=== PATIENT | male | born 1945 | race Caucasian/White ===

== ENCOUNTER → 2016-10-02 | Outpatient (CLI) | payer BC, OTHER | LOC: CV 12:45 | DX: I51.7 Cardiomegaly (principal); I25.10 Atherosclerotic heart disease of native coronary artery without angina pectoris ==

== ENCOUNTER → 2018-03-28 | Outpatient (CLI) | payer BC, OTHER ==
[~2018-03-28] MED LIST: ACYCLOVIR 200200 MG PO; AURALGAN EAR DR14 ML OT; IMDUR 30 MG TAB30 M1 PO; K-DUR 20 MEQ T20 MEQ PO; KEFLEX250 MG PO; LASIX 20 MG TAB20 MG PO; LIPITOR80 MG PO; LISINOPRIL10 MG PO; RABEPRAZOLE SOD20 MG PO; SERTRALINE HCL100 MG PO; SINEMET 25-2501 EAC1 PO
--- NOTE | 2018-03-28 16:25 | 2DMMODE ---
[facility] [place] [address] 2 D/M-MODE ECHOCARDIOGRAM Name: ZACHJONATHAN MURRAY Room #: REG [facility]#: [id number] ������������� Admission: 03/28/18 ������������� Attend Phys: Abebe Corral MD Discharge: ��� ������������� ��� Date of : 49 Date of Service: 03/28/18 1625 �� Report #: [id number] �������� ��������������������������������������������[id number] THIS REPORT FOR: //name// APPROVED REPORT Study performed: 03/28/2018 14:37:33 EXAM: Comprehensive 2D, Doppler, and color-flow Echocardiogram Patient Location: Echo lab Status: routine BSA: 2.49 HR: 55 bpm BP: 140/80 mmHg Rhythm: NSR Other Information Study Quality: Fair Indications Bradycardia CAD HTN 2D Dimensions IVSd: 14.28 (7-11mm) LVOT Diam: 25.38 (18-24mm) LVDd: 54.07 mm PWd: 12.28 (7-11mm) Ascending Ao: 44.73 (22-36mm) LVDs: 43.26 (25-40mm) Aortic Root: 46.95 mm Volumes Left Atrial Volume (Systole) Single Plane 4CH: 34.81 mL Single Plane 2CH: 50.69 mL LA ESV Index: 18.42 mL/m2 Aortic Valve AoV Peak Sunny.: 0.89 m/s AO Peak Gr.: 3.20 mmHg LVOT Max P.37 mmHg LVOT Max V: 0.58 m/s KENNEDI Vmax: 3.31 cm2 Mitral Valve E/A Ratio: 0.7 MV Decel. Time: 261.78 ms [facility] [address] [address] 2 D/M-MODE ECHOCARDIOGRAM Name: BILLIE SERRANODRICK MURRAY Room #: REG [facility]#: [id number] ������������� Admission: 03/28/18 ������������� Attend Phys: Abebe Corral MD Discharge: ��� ������������� ��� Date of : 49 Date of Service: 03/28/18 1625 �� Report #: [id number] �������� ��������������������������������������������[id number] MV E Max Sunny.: 0.38 m/s MV A Sunny.: 0.56 m/s MV PHT: 75.91 ms IVRT: 106.11 ms Pulmonary Valve PV Peak Sunny.: 0.90 m/s PV Peak Gr.: 3.26 mmHg ID End Vmax: 0.87 m/s Tricuspid Valve TR Peak Sunny.: 2.24 m/s RAP Estimate: 5.00 mmHg TR Peak Gr.: 20.11 mmHg PA Pressure: 25.00 mmHg Left Ventricle The left ventricle is normal size. Mild concentric left ventricular hypertrophy. Left ventricular systolic function is mildly decreased. LVEF is 45%. Mild diastolic dysfunction is present (impaired relaxation pattern). Right Ventricle The right ventricle is normal size. The right ventricular systolic function is normal. Atria The left atrium size is normal. The right atrium size is normal. Aortic Valve The aortic valve is normal in structure. No aortic regurgitation is present. There is no aortic valvular stenosis. Mitral Valve The mitral valve is normal in structure. Trace mitral regurgitation. No evidence of mitral valve stenosis. Tricuspid Valve The tricuspid valve is normal in structure. Mild tricuspid regurgitation. Estimated PAP of 25 mmHg. Pulmonic Valve The pulmonary valve is normal in structure. Mild to moderate pulmonic regurgitation. 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 Ascending aorta is dilated [facility] [place] [place] [address] 2 D/M-MODE ECHOCARDIOGRAM Name: ZACHJONATHANCISCO GAO Room #: REG [facility]#: [id number] ������������� Admission: 03/28/18 ������������� Attend Phys: Abebe Corral MD Discharge: ��� ������������� ��� Date of : 49 Date of Service: 03/28/18 1625 �� Report #: [id number] �������� ��������������������������������������������[id number] measuring 4.5 cm. IVC is normal in size and collapses >50% with inspiration. Pericardium There is no pericardial effusion. <Conclusion> The left ventricle is normal size. Mild concentric left ventricular hypertrophy. Left ventricular systolic function is mildly decreased. LVEF is 45%. Mild diastolic dysfunction is present (impaired relaxation pattern). The right ventricle is normal size. The left atrium size is normal. There is no aortic valvular stenosis. Trace mitral regurgitation. Mild tricuspid regurgitation. Estimated PAP of 25 mmHg. ��������������������������������������������� <ELECTRONICALLY SIGNED> ���������������������������������������� By: Abebe Corral MD ��������������������������������������������� 03/28/18 1625 1625 1625 Abebe Corral MD /INF
== END | disposition home or self-care (01) ==
LOC: OPONC 12:32
DX: I08.1 Rheumatic disorders of both mitral and tricuspid valves (principal); I11.0 Hypertensive heart disease with heart failure; I50.30 Unspecified diastolic (congestive) heart failure; I25.10 Atherosclerotic heart disease of native coronary artery without angina pectoris; Z79.899 Other long term (current) drug therapy

== ENCOUNTER → 2019-03-26 | Outpatient (CLI) | payer BC | LOC: SJCVCIMAG 10:02 → NUC 14:07 → SJCVCIMAG 14:35 → NUC 14:41 | DX: I44.0 Atrioventricular block, first degree (principal); I25.10 Atherosclerotic heart disease of native coronary artery without angina pectoris; I10 Essential (primary) hypertension; E78.5 Hyperlipidemia, unspecified; E11.9 Type 2 diabetes mellitus without complications; Z79.4 Long term (current) use of insulin; Z87.891 Personal history of nicotine dependence ==

== ENCOUNTER → 2019-09-25 | Outpatient (CLI) | payer BC, OTHER | LOC: SJCVC 12:53 | PROVIDERS: ATTEND Internal Medicine Cardiovascular Disease | DX: R94.31 Abnormal electrocardiogram [ECG] [EKG] (principal); I44.0 Atrioventricular block, first degree; I44.4 Left anterior fascicular block; I25.10 Atherosclerotic heart disease of native coronary artery without angina pectoris; I10 Essential (primary) hypertension; E78.00 Pure hypercholesterolemia, unspecified; R60.9 Edema, unspecified ==

== ENCOUNTER → 2020-04-01 | Outpatient (CLI) | payer BC, OTHER | LOC: SJCVC 12:38 | PROVIDERS: ATTEND Internal Medicine Cardiovascular Disease | DX: R94.31 Abnormal electrocardiogram [ECG] [EKG] (principal); I45.10 Unspecified right bundle-branch block; I44.0 Atrioventricular block, first degree; I25.10 Atherosclerotic heart disease of native coronary artery without angina pectoris; I10 Essential (primary) hypertension; E78.00 Pure hypercholesterolemia, unspecified; R60.9 Edema, unspecified; G47.33 Obstructive sleep apnea (adult) (pediatric); Z79.82 Long term (current) use of aspirin; Z79.4 Long term (current) use of insulin; Z79.899 Other long term (current) drug therapy ==

== ENCOUNTER → 2020-09-22 | Outpatient (CLI) | payer OTHER | LOC: SJCVC 13:37 | PROVIDERS: ATTEND Internal Medicine Cardiovascular Disease | DX: R94.31 Abnormal electrocardiogram [ECG] [EKG] (principal); I45.10 Unspecified right bundle-branch block; I44.0 Atrioventricular block, first degree; I10 Essential (primary) hypertension; I25.10 Atherosclerotic heart disease of native coronary artery without angina pectoris; E78.00 Pure hypercholesterolemia, unspecified; R60.9 Edema, unspecified; Z90.49 Acquired absence of other specified parts of digestive tract; Z79.82 Long term (current) use of aspirin; Z79.4 Long term (current) use of insulin; Z79.899 Other long term (current) drug therapy; Z87.891 Personal history of nicotine dependence; Z82.49 Family history of ischemic heart disease and other diseases of the circulatory system ==

== ENCOUNTER → 2020-10-06 | Outpatient (CLI) | payer OTHER | LOC: SJCVCIMAG 07:54 | PROVIDERS: ATTEND Internal Medicine Cardiovascular Disease | DX: R94.31 Abnormal electrocardiogram [ECG] [EKG] (principal); I44.0 Atrioventricular block, first degree; I25.10 Atherosclerotic heart disease of native coronary artery without angina pectoris; I10 Essential (primary) hypertension; E78.00 Pure hypercholesterolemia, unspecified; R60.9 Edema, unspecified; E11.9 Type 2 diabetes mellitus without complications; I11.9 Hypertensive heart disease without heart failure; Z79.82 Long term (current) use of aspirin; Z79.4 Long term (current) use of insulin; Z79.899 Other long term (current) drug therapy; Z87.891 Personal history of nicotine dependence; Z72.89 Other problems related to lifestyle ==

== ENCOUNTER → 2020-11-22 | Outpatient (CLI) | payer OTHER | LOC: SJCVC 13:00 | PROVIDERS: ATTEND Internal Medicine Cardiovascular Disease | DX: I45.2 Bifascicular block (principal); R94.31 Abnormal electrocardiogram [ECG] [EKG]; I48.91 Unspecified atrial fibrillation; I25.10 Atherosclerotic heart disease of native coronary artery without angina pectoris; I10 Essential (primary) hypertension; E78.00 Pure hypercholesterolemia, unspecified; R60.9 Edema, unspecified; E11.9 Type 2 diabetes mellitus without complications; G47.33 Obstructive sleep apnea (adult) (pediatric); Z79.82 Long term (current) use of aspirin; Z79.4 Long term (current) use of insulin; Z79.899 Other long term (current) drug therapy; Z87.891 Personal history of nicotine dependence; Z72.89 Other problems related to lifestyle ==

== ENCOUNTER → 2020-12-09 | Outpatient (CLI) | payer OTHER ==
[~2020-12-09] MED LIST changes: +ACTOS 30 MG TAB30 MG PO; +CARVEDILOL12.5 MG PO; +ELIQUIS5 MG PO; +GLIPIZIDE 10 MG10 MG PO; +METFORMIN HCL500 M3 PO; +MULTAQ 400 MG400 MG PO; +NOVOLOG MI100 UNIT/M SUBQ
== END ==
LOC: SJCVC 14:37
PROVIDERS: ATTEND Internal Medicine Cardiovascular Disease
DX: R94.31 Abnormal electrocardiogram [ECG] [EKG] (principal); I44.30 Unspecified atrioventricular block; I48.92 Unspecified atrial flutter; I48.0 Paroxysmal atrial fibrillation; I25.10 Atherosclerotic heart disease of native coronary artery without angina pectoris; I10 Essential (primary) hypertension; G47.33 Obstructive sleep apnea (adult) (pediatric); E66.01 Morbid (severe) obesity due to excess calories; R60.9 Edema, unspecified; E11.9 Type 2 diabetes mellitus without complications; I48.3 Typical atrial flutter; Z87.891 Personal history of nicotine dependence; Z72.89 Other problems related to lifestyle; Z79.4 Long term (current) use of insulin; Z79.82 Long term (current) use of aspirin; Z79.899 Other long term (current) drug therapy; Z82.49 Family history of ischemic heart disease and other diseases of the circulatory system

== ENCOUNTER → 2020-12-21 | Outpatient (CLI) | payer OTHER ==
[~2020-12-21] VITALS: Ht 190.5 cm; Wt 152.0 kg
[2020-12-21 07:39] VITALS: BP 132/45
[2020-12-21 07:39] LABS: ABSOLUTE NEUTROPHILS 5.1 thou/uL (1.4-8.2); BASOPHILS 0.9 % (0.0-2.0); EOSINOPHILS 3.3 % (0.0-3.0); HEMATOCRIT 38.5 % (42.0-52.0); HEMOGLOBIN 12.8 gm/dL (14.0-18.0); LYMPHOCYTES 20.1 % (24.0-44.0); MCHC 33.2 g/dL (28.0-37.0); MCV 87.3 fL (80.0-100.0); MONOCYTES 8.9 % (1.0-8.0); PLATELET COUNT 231 thou/uL (150-400); POLYS 66.8 % (36.0-66.0); RBC 4.41 mil/uL (4.50-6.00); RDW 14.3 % (10.5-14.5); WBC 7.6 thou/uL (4.0-11.0)
[2020-12-21 07:58] LABS: CALCIUM 8.8 mg/dL (8.5-10.1); CREATININE 0.9 mg/dL (0.7-1.3)
[2020-12-21 08:02] LABS: ALBUMIN 3.4 g/dL (3.4-5.0); TOTAL BILIRUBIN 0.6 mg/dL (0.2-1.0); TOTAL PROTEIN 6.7 g/dL (6.4-8.2)
[2020-12-21 08:56] LABS: APTT 32.4 Seconds (24.5-32.8); INR 1.07; PROTIME 11.6 Seconds (10.5-12.1)
--- NOTE | 2021-01-10 09:03 | P ---
[facility] [place] [address] PROCEDURE REPORT Name: JONATHAN SERRANO Room #: REG [facility] [place].#: [id number] Admission: 12/21/20 Attend Phys: Mina Crain MD Discharge: Date of : 49 Report #: [id number] THIS REPORT FOR: cc: Santana Woods MD, Rene P. MD Couchonnal, Luis F. MD ~ DATE OF SERVICE: 12/21/2020 PROCEDURE: Cardioversion. PREOPERATIVE DIAGNOSIS: Atrial fibrillation. POSTOPERATIVE DIAGNOSIS: Atrial fibrillation. DESCRIPTION OF PROCEDURE: The patient underwent informed consent. He was prepped in a standard fashion. He was then sedated by the Anesthesiology Service. Once sedated, he underwent a 200 joule synchronized cardioversion with religion of sinus rhythm. There were no procedure related complications. CONCLUSION: Successful DC cardioversion with religion of sinus rhythm. <ELECTRONICALLY SIGNED> By: Mina Crain MD 01/10/21902 [id number] Mina Crain MD /nt
== END | disposition home or self-care (01) ==
LOC: CATH 06:32
PROVIDERS: ATTEND Internal Medicine Cardiovascular Disease
DX: I48.92 Unspecified atrial flutter (principal)
CPT/HCPCS: 62110; 62900